=== PATIENT | male | born 1980 | race African-American/Black ===

== ENCOUNTER 2022-10-02 15:16 | Emergency (ER) | payer OTHER ==
[~2022-10-02] VITALS: Ht 193 cm; Wt 139.0 kg
[2022-10-02] MEDS ORDERED: FLEXERIL5 M1 PO ×2 (17:15→17:36)
[2022-10-02] MEDS ORDERED: IBUPROFEN600 MG PO ×2 (17:15→17:36)
[2022-10-02 17:33] VITALS: BP 148/66
== END 2022-10-02 17:33 | disposition home or self-care (01) | DRG 552 ==
LOC: ED 15:16
DX: M54.9 Dorsalgia, unspecified (principal); R51.9 Headache, unspecified; M54.2 Cervicalgia; V43.62XA Car passenger injured in collision with other type car in traffic accident, initial encounter

== ENCOUNTER 2024-07-15 22:44 | Emergency (ER) | payer SELFPAY ==
[~2024-07-15] VITALS: Ht 193 cm; Wt 141.0 kg
[~2024-07-15 22:44] MED LIST: FLEXERIL5 M1 PO; IBUPROFEN600 MG PO
[2024-07-15] MEDS ORDERED: FLUORESCEIN SODIUM 1 MG EA OU ONE (23:00)
[2024-07-15] MEDS ORDERED: TETRACAINE HCL 0.5 %/4 ML SOL OU ONE (23:00)
[2024-07-15] MEDS ORDERED: OPHTHALMIC IRRIGATION SOLUTION 118 ML BTL OU ONE (23:15)
[2024-07-15] MEDS ORDERED: SODIUM CHLORIDE 0.9% 1,000 ML IV ONE (23:20)
[2024-07-15] MEDS ORDERED: GENTAMICIN SULFATE (OPHTH) 5 ML BTL OU ONE (23:55)
[2024-07-15] MEDS ORDERED: GENTAMICIN0.3 % OU (23:55)
[2024-07-16 00:27] VITALS: BP 143/81
== END 2024-07-16 00:27 | disposition home or self-care (01) | DRG 918 ==
LOC: ED 22:44
DX: T53.5X1A Toxic effect of chlorofluorocarbons, accidental (unintentional), initial encounter (principal); H10.213 Acute toxic conjunctivitis, bilateral; I10 Essential (primary) hypertension; Z72.0 Tobacco use